=== PATIENT | male | born 1940 | race Caucasian/White ===

== ENCOUNTER 2017-08-12 09:53 | Day surgery (SDC) | payer MEDICARE, OTHER ==
[2017-08-12] VITALS (8 sets, daily range): BP systolic 140–170; BP diastolic 76–102; PULSE 60–73; TEMP 97
[~2017-08-12] VITALS: Ht 188 cm; Wt 79.3 kg
[~2017-08-12 09:53] MED LIST: ASPIRIN 32325 MG/TAB PO; ATACAND4 MG PO; BETAPACE 80MG80 MG PO; CIPRO 250MG TA250 MG PO; COLACE 100100 MG/CAP PO; COREG 3.123.125 MG/T PO; COUMADIN 5MG5 MG/TAB PO; LIPITOR 80MG80 MG PO; LOVENOX 4040 MG/0.4 SQ; MACRODANTIN100 PO; PERCOCET 325 MG1 TA2 PO; RAPAFLO4 MG PO
[2017-08-12 10:43] LABS: HEMATOCRIT 38.6 % (42.0-52.0); HEMOGLOBIN 12.6 g/dl (13.5-18.0); MEAN CELL VOLUME 94 fl (80.0-100.0); MEAN CORPUSCULAR HEMOGLOBIN 31 pg (27.0-31.0); MEAN CORPUSCULAR HGB CONC 33 g/dl (33.0-37.0); MEAN PLATELET VOLUME 9.9 fl (7.4-10.4); PLATELET COUNT 117 K/mm3 (130-400); REDCELL DISTRIBUTION WIDTH-CV 14.1 % (11.5-14.5); WHITE BLOOD COUNT 5.5 K/mm3 (4.8-10.8)
[2017-08-12 10:51] LABS: CALCIUM 9.4 mg/dL (8.4-10.2); CREATININE, serum 0.95 mg/dL (0.66-1.25); POTASSIUM 3.9 mmol/L (3.4-5.0)
[2017-08-12 10:52] LABS: INR 1.1 (0.8-3.0); PROTHROMBIN TIME 12.5 SECONDS (9.7-12.8)
[2017-08-12] MEDS ORDERED: COUMADIN 5MG5 MG/TAB PO (10:53)
[2017-08-12] MEDS ORDERED: ASPIRIN 81M81 MG/TA2 PO (10:54)
[2017-08-12] MEDS ORDERED: CEPHALEXIN500 M1 PO (13:42)
== END 2017-08-12 14:50 | disposition home or self-care (01) ==
LOC: EUO 09:53 → COL.CAR 09:53 → EUO 14:50
PROVIDERS: Internal Medicine Cardiovascular Disease
DX: Z45.09 Encounter for adjustment and management of other cardiac device (principal); I25.5 Ischemic cardiomyopathy; Z95.1 Presence of aortocoronary bypass graft; Z95.2 Presence of prosthetic heart valve; Z79.01 Long term (current) use of anticoagulants; Z82.49 Family history of ischemic heart disease and other diseases of the circulatory system; F03.90 Unspecified dementia, unspecified severity, without behavioral disturbance, psychotic disturbance, mood disturbance, and anxiety
CPT/HCPCS: C1882; J0690; J7030

== ENCOUNTER 2018-08-06 18:15 | Inpatient (IN) | payer MEDICARE, OTHER ==
[~2018-08-06] VITALS: Ht 188 cm; Wt 83.2 kg
[~2018-08-06 18:15] MED LIST changes: +ASPIRIN 81M81 MG/TA2 PO; +CEPHALEXIN500 M1 PO; +LIPITOR 40MG TA40 MG PO
[2018-08-06 19:18] VITALS: BP 189/86; PULSE 67; TEMP 98.7
[2018-08-07 02:30] VITALS: BP 168/89; BP 178/88; PULSE 104; PULSE 78; TEMP 97.2; TEMP 97.6
[2018-08-07 09:51] LABS: HEMOGLOBIN 10.5 g/dl (13.5-18.0); MEAN CELL VOLUME 93 fl (80.0-100.0); MEAN CORPUSCULAR HEMOGLOBIN 32 pg (27.0-31.0); MEAN CORPUSCULAR HGB CONC 34 g/dl (33.0-37.0); MEAN PLATELET VOLUME 9.7 fl (7.4-10.4); PLATELET COUNT 163 K/mm3 (130-400); RED BLOOD COUNT 3.31 M/mm3 (4.20-5.60)
[2018-08-07 09:53] LABS: INR 1.2 (0.8-3.0); PROTHROMBIN TIME 13.9 SECONDS (9.7-12.8)
[2018-08-07 09:54] LABS: HEMATOCRIT 30.9 % (42.0-52.0)
[2018-08-07 10:15] VITALS: BP 152/64; PULSE 69
[2018-08-07 10:16] VITALS: BP 140/75; PULSE 77
[2018-08-07 10:17] LABS: BAND 6 % (0-10); LYMPHOCYTE 27 % (20.0-51.0); NEUTROPHILS 66 % (42.0-75.2); PLATELET ESTIMATE NORMAL (NORMAL)
[2018-08-07 10:30] LABS: ALBUMIN 3.2 gm/dL (3.5-5.0); BILIRUBIN,TOTAL 0.9 mg/dL (0.0-1.0); CALCIUM 8.8 mg/dL (8.4-10.2); CREATININE, serum 0.82 mg/dL (0.66-1.25); POTASSIUM 3.5 mmol/L (3.4-5.0); TOTAL PROTEIN 6.6 gm/dL (6.4-8.2)
[2018-08-07 10:56] LABS: ARTERIAL BLD GAS O2 SATURATION 96.3 % (92-100); ARTERIAL BLOOD GAS BASE EXCESS 0.8 (-2-2); ARTERIAL BLOOD GAS PCO2 33.2 mmHg (35-45); ARTERIAL BLOOD GAS PO2 86.3 mmHg (80-100); ARTERIAL BLOOD GAS pH 7.48 (7.35-7.45)
== END 2018-08-07 11:15 | disposition short-term general hospital (02) | DRG 56 ==
PROVIDERS: Internal Medicine
DX: I69.098 Other sequelae following nontraumatic subarachnoid hemorrhage (principal); G93.49 Other encephalopathy; I69.020 Aphasia following nontraumatic subarachnoid hemorrhage; Z95.2 Presence of prosthetic heart valve; I69.018 Other symptoms and signs involving cognitive functions following nontraumatic subarachnoid hemorrhage; I48.91 Unspecified atrial fibrillation; I25.10 Atherosclerotic heart disease of native coronary artery without angina pectoris; I25.5 Ischemic cardiomyopathy; Z95.810 Presence of automatic (implantable) cardiac defibrillator; Z95.1 Presence of aortocoronary bypass graft
CPT/HCPCS: J1630; J1953; J7030